=== PATIENT | female | born 1990 | race Caucasian/White ===

== ENCOUNTER 2019-08-16 10:51 | Outpatient (CLI) | payer OTHER ==
[~2019-08-16] VITALS: Ht 170.2 cm; Wt 119.4 kg
--- NOTE | 2019-08-16 10:50 | NUR ---
GILL MIN presented to unit via from home, accompanied by Aj , with c/o [employer]. GILL MIN weighed, gowned, voided, and to bed. EFHM and TOCO applied, VS taken. GILL MIN oriented to bed controls, call light, TV, heat, and A/C controls.
[2019-08-16 10:55] VITALS: BP 128/78
[2019-08-16] MEDS ORDERED: ASPI-999 PO (11:26)
[2019-08-16] MEDS ORDERED: FERR-84 PO (11:26)
[2019-08-16] MEDS ORDERED: PREN1TAB19 PO (11:26)
[2019-08-16 11:57] VITALS: BP 128/78
--- NOTE | 2019-08-16 12:15 | NUR ---
Wrong time noted on some of the interventions - listed 1010, however time was 1110. Pt stated was 1 cm from previous exam several weeks ago. Cervix unchanged. 1215 OB outpt instructions given to pt with verbalized understanding. Ambulatory to exit.
--- NOTE | 2019-08-19 08:23 | Physician Query-Final Dx ---
TATI PAGAN 08/19/19 0823: Clinic Account Progress/Dx Physician Query: Please give diagnosis Please include # weeks gestation Date of Service Aug 16, 2019 at 10:51 SHAW AGUAYO DO 08/19/19 0951: Clinic Account Progress/Dx DIAGNOSIS: Diagnosis 35 week IUP Pelvic pressure TATI PAGAN Aug 19, 2019 08:23 POSSHAW AGUAYO DO Aug 19, 2019 09:51 POS
[2019-09-04] MEDS ORDERED: DOCU100C37 PO (11:23)
[2019-09-04] MEDS ORDERED: DIBU30OI TOP (11:23)
[2019-09-04] MEDS ORDERED: ACHD5005 PO (11:23)
[2019-09-04] MEDS ORDERED: FERR325T18 PO (11:23)
[2019-09-04] MEDS ORDERED: IBUP-844 PO (11:23)
[2019-09-04] MEDS ORDERED: BENZ78AE2 TP (11:23)
== END 2019-08-16 12:15 ==
LOC: WSo 10:51 → LDRP 10:52 → WSo 12:15
PROVIDERS: ATTEND Obstetrics & Gynecology
DX: O26.893 Other specified pregnancy related conditions, third trimester (principal); R10.2 Pelvic and perineal pain; Z3A.35 35 weeks gestation of pregnancy
CPT/HCPCS: 99213

== ENCOUNTER 2019-09-03 09:12 | Inpatient (IN) | payer OTHER ==
[~2019-09-03] VITALS: Ht 170.2 cm; Wt 121.7 kg
[2019-09-03] VITALS (50 sets, daily range): BP systolic 123–157; BP diastolic 58–96
[~2019-09-03 09:12] MED LIST: ASPI-999 PO; FERR-84 PO; PREN1TAB19 PO
[2019-09-03] MEDS ORDERED: OXYTOCIN/NORMAL SALINE 500 ML IV SCH ×2 (09:31→19:49)
--- NOTE | 2019-09-03 09:53 | History & Physical-OB ---
OB - Chief Complaint & HPI Date/Time Date of Admission: Date of Admission: 09/03/2019 Date seen by a Provider: Sep 03, 2019 Time Seen by a Provider: 09:45 Chief Complaint/History OB-Reason for Admission/Chief: Rupture of Membranes Hx : 3 Hx Para: 1 Expected Date of Delivery: Sep 12, 2019 Gestational Age in Weeks: 38 Gestational Age in Days: 5 Admission Nurse Assessment Rev: Yes History of Labs O pos Antibody neg RI RPR NR HBsAg NR HCsAg NR HIV NR GC neg GBS neg Allergies and Home Medications Allergies Coded Allergies: No Known Drug Allergies (Unverified , 09/03/19) Home Medications Aspirin 81 Mg Tab.chew, 81 MG PO HS, (Reported) Ferrous Sulfate 325 Mg Tablet, 325 MG PO HS, (Reported) Vit/Iron Fumarate/FA 1 Each Tablet, 1 EACH PO DAILY, (Reported) Patient Home Medication List Home Medication List Reviewed: Yes OB - History Hx of Present Care: Yes Ultrasounds: Normal mid trimester US Obstetrical Complications: None Medical Complications: None Patient Past Medical History n/a Social History/Family History 2nd Hand Smoke Exposure: No Immunizations Date of Influenza Vaccine: Jul 23, 2019 OB - Admission Exam Physical Exam HEENT: NCAT Heart: Rhythm Normal Lungs: Clear Abdomen: Gravid Extremities: Normal Reflexes: Normal Cervical Dilatation: 5cm Effacement: 75% Station: -3 Membranes: Ruptured Amniotic Fluid: Clear Heart Rate: 130's Accelerations: Accelerations Present Decelerations: No Decelerations Short Term Variability: Present Assisted Variability: Average (6-25) Contractions on Admission: 6-10 Minutes Apart Intensity: Mild OB - Assessment/Plan/Diagnosis Assessment Assessment: active labor Admission Dx 28 yo @ 38.5 weeks SROM- last night at 1900 GBS neg Admission Status: Inpatient Order (span 2 midnights) Reason for Inpatient Admission: Active labor at term Plan Plan: Other (Pitocin augmentation due to inadequate contraction pattern.) SHAW AGUAYO DO Sep 03, 2019 9:53 am
[2019-09-03] MEDS ORDERED: LACTATED RINGERS 1,000 ML IV ONE ×2 (10:02→11:13)
[2019-09-03 10:09] LABS: BASOPHILS % (AUTO) 0 % (0-10); EOSINOPHILS # (AUTO) 0.1 10^3/uL (0.0-0.3); EOSINOPHILS % (AUTO) 1 % (0-10); HEMATOCRIT 35 % (35-52); HEMOGLOBIN 11.7 G/DL (11.5-16.0); LYMPHOCYTES # (AUTO) 1.6 X 10^3 (1.0-4.0); LYMPHOCYTES % (AUTO) 16 % (12-44); MEAN CORPUSCULAR HEMOGLOBIN 28 PG (25-34); MEAN CORPUSCULAR HGB CONC 33 G/DL (32-36); MEAN CORPUSCULAR VOLUME 83 FL (80-99); MEAN PLATELET VOLUME 10.8 FL (7.4-10.4); MONOCYTES # (AUTO) 0.7 X 10^3 (0.0-1.0); MONOCYTES % (AUTO) 7 % (0-12); NEUTROPHILS # (AUTO) 7.5 X 10^3 (1.8-7.8); NEUTROPHILS % (AUTO) 76 % (42-75); PLATELET COUNT 223 10^3/uL (130-400); RED CELL DISTRIBUTION WIDTH 14.8 % (10.0-14.5); WHITE BLOOD COUNT 9.9 10^3/uL (4.3-11.0)
[2019-09-03 10:10] LABS: BILIRUBIN,URINE NEGATIVE (NEGATIVE); CLARITY,URINE CLEAR; COLOR,URINE YELLOW; GLUCOSE, URINE (UA) NEGATIVE (NEGATIVE); KETONES,URINE NEGATIVE (NEGATIVE); LEUKOCYTE ESTERASE ,URINE NEGATIVE (NEGATIVE); NITRITE,URINE NEGATIVE (NEGATIVE); PH,URINE 6.5 (5-9); PROTEIN,URINE NEGATIVE (NEGATIVE)
[2019-09-03] MEDS: D5 LR IV SOLUTION 1,000 ML IV SCH ×2 (10:11→17:30)
[2019-09-03 10:27] LABS: BACTERIA,URINE NEGATIVE /HPF
[2019-09-03] MEDS ORDERED: SUFENTA 0.6MCG/ML BUPIVA 0.125 100 ML ONE (10:32)
[2019-09-03] MEDS ORDERED: fentaNYL INJECTION 100 MCG/2 ML AMP ONE (10:42)
[2019-09-03] MEDS ORDERED: BUPIVACAINE 0.25% 30 ML (SENSORCAINE) VIAL ONE (10:42)
[2019-09-03] MEDS: EPIDURAL (SUFENTA 0.6MCG/ML BUPIVA 0.125%) 100 ML BAG EPI SCH ×2 (11:05→17:30)
[2019-09-03] MEDS ORDERED: CATHETER FLUSH 10 ML SYR IV PRN (11:15)
[2019-09-03] MEDS ORDERED: NALOXONE 0.4 MG/ML 1 ML (NARCAN) VIAL IV PRN (11:15)
[2019-09-03] MEDS ORDERED: ONDANSETRON 4 MG/2 ML (SDV) Z0FRAN IV PRN (11:15)
[2019-09-03] MEDS ORDERED: diphenhydrAMINE 50 MG/ML INJ (BENADRYL) IV PRN (11:15)
[2019-09-03] MEDS ORDERED: CATHETER FLUSH 10 ML SYR IV SCH ×2 (14:00→22:00)
[2019-09-03] MEDS ORDERED: LIDOCAINE/EPI 2% 1:200,00 (XYLOCAINE) 10 ML VIAL ONE (19:10)
--- NOTE | 2019-09-03 19:49 | OB Labor & Delivery Record ---
L&D History Date of Service Date of Service: Sep 03, 2019 History Expected Date of Delivery: Sep 12, 2019 Gestational Age in Weeks: 38 Hx : 3 Hx Para: 1 Complications Events: Routine care Operative Indications (Cesarea: N/A-Vaginal Delivery Intrapartal Events: None L&D Stage1 Stage One Onset of Labor - Date: Sep 03, 2019 Monitors and Tracing Monitor Mode: Internal Heart Rate: 145 Monitor Accelerations: Uniform Station: -2 Retirement Variability: Average (6-10) Short Term Variability: Present Presentation: Vertex Vital Signs VS - Last 72 Hours, by Label 09/03/19 09/03/19 09/03/19 09/03/19 09:14 09:14 10:00 10:30 Temp 36.9 36.9 Pulse 105 105 96 86 Resp 20 20 20 20 B/P (MAP) 129/90 (103) 131/83 (99) 125/85 (98) Pulse Ox 99 99 O2 Delivery Room Air Room Air Room Air Room Air 09/03/19 09/03/19 09/03/19 09/03/19 10:45 10:54 10:57 10:58 Pulse 88 87 88 82 Resp 20 20 20 20 B/P (MAP) 142/78 (99) 139/87 (104) 133/84 (100) 138/89 (105) Pulse Ox 100 99 98 98 O2 Delivery Room Air Room Air Room Air Room Air 09/03/19 09/03/19 09/03/19 09/03/19 10:59 11:00 11:05 11:15 Temp 37.0 Pulse 77 105 97 86 Resp 20 20 20 20 B/P (MAP) 140/88 (105) 138/89 (105) 141/83 (102) 138/63 (88) Pulse Ox 99 98 98 99 O2 Delivery Room Air Room Air Room Air Room Air 09/03/19 09/03/19 09/03/19 09/03/19 11:30 11:45 12:00 12:15 Temp 36.8 Pulse 82 72 75 77 Resp 20 20 20 20 B/P (MAP) 138/85 (102) 132/83 (99) 128/81 (97) 123/78 (93) Pulse Ox 99 97 98 99 O2 Delivery Room Air Room Air Room Air Room Air 1209/03/19 09/03/19 09/03/19 12:30 12:45 13:00 13:15 Pulse 70 66 64 79 Resp 20 20 20 20 B/P (MAP) 133/86 (102) 125/82 (96) 129/82 (98) 123/83 (96) Pulse Ox 98 98 99 99 O2 Delivery Room Air Room Air Room Air Room Air 09/03/19 09/03/19 09/03/19 09/03/19 13:30 13:45 14:00 14:15 Pulse 78 90 86 92 Resp 20 20 20 20 B/P (MAP) 124/86 (99) 128/80 (96) 125/78 (94) 125/74 (91) Pulse Ox 98 98 98 98 O2 Delivery Room Air Room Air Room Air Room Air 09/03/19 09/03/19 09/03/19 09/03/19 14:30 14:45 15:00 15:15 Temp 36.9 Pulse 86 91 101 96 Resp 20 20 20 20 B/P (MAP) 129/84 (99) 137/75 (95) 126/81 (96) 132/88 (103) Pulse Ox 98 98 98 98 O2 Delivery Room Air Room Air Room Air Room Air 09/03/19 09/03/19 09/03/19 09/03/19 15:30 15:45 16:00 16:15 Temp 36.9 Pulse 93 109 87 96 Resp 20 20 20 20 B/P (MAP) 136/91 (106) 130/85 (100) 130/79 (96) 133/89 (104) Pulse Ox 98 98 97 97 O2 Delivery Room Air Room Air Room Air Room Air 09/03/19 09/03/19 09/03/19 09/03/19 16:30 16:45 17:00 17:15 Pulse 81 77 120 65 Resp 20 20 20 20 B/P (MAP) 127/58 (81) 133/71 (91) 128/80 (96) 132/83 (99) Pulse Ox 96 99 98 98 O2 Delivery Room Air Room Air Room Air Room Air 09/03/19 09/03/19 09/03/19 09/03/19 17:30 17:45 18:00 18:15 Temp 37.3 Pulse 89 86 79 85 Resp 20 20 20 20 B/P (MAP) 124/78 (93) 128/72 (90) 140/89 (106) 138/85 (102) Pulse Ox 98 98 96 95 O2 Delivery Room Air Room Air Room Air Room Air 09/03/19 18:30 Pulse 96 Resp 20 B/P (MAP) 134/86 (102) Pulse Ox 96 O2 Delivery Room Air Rupture of Membranes Spontaneous Ruture of Membrane: Yes Amniotic Membrane Rupture Time: 1900 Amniotic Membrane Fluid Desc.: Clear Vaginal Bleeding Description: Normal Show Induction/Anesthesia Epidural Cath Placement - Time: 1058 Progress/Notes Patient admitted after approx 12 hrs of SROM, Pitocin started at admission, and epidural received shortly after. She progressed to complete and + 2 station at a max dose of 14 mu/min L&D Stage2 Stage Two Stage II Date: Sep 03, 2019 Monitors and Tracing Monitor Mode: External Heart Rate: 145 Monitor Accelerations: Uniform Monitor Decelerations: Variable Archives Technician Variability: Average (6-10) Position: Right Occiput Anterior Presentation: Vertex Signs of Distress by FHT Signs of Distress nuchal cord reduced x 1 Cord Descript/Complications Cord Vessel Description: 3 Vessels Delivery Type Infant Delivery Method: Spontaneous Vaginal Anterior Shoulder: Right Episiotomy/Perineal Laceration Laceraction(s)/Extensions: Yes Episiotomy Description: Midline Degree (describe repair) midline episiotomy and right periurethral repaired using 3-0 rapide in usual fashion. Condition of Delivery 1 minute Comment: 8 5 minute Comment: 9 Notes Live female infant weight pending Condition of Condition of : Living Exam: No Observed Abnormalities Resuscitation Resuscitation: N/A - Spontaneous Resp L&D Stage3 Stage Three Stage III Date: Sep 03, 2019 Pictocin Pitocin Administration mu/min: 14 Pitocin ml/hr: 14 Pitocin Administration Comment: 30 mu Wide open at delivery of placenta Placenta Delivery Placenta Delivery: Spontaneous Delivery Summary Summary Estimated blood loss (mL): 350 350 Attending at delivery: Shaw Aguayo DO Condition of Delivery Examined: Cervix Examined, Uterus Explored Post Hemorrhage: No Condition of Mother stable Condition of (s) stable SHAW AGUAYO DO Sep 03, 2019 7:49 pm
[2019-09-03] MEDS ORDERED: TETANUS,DIPTH,PERTUSS P/F (BOOSTRIX) 0.5 ML VIAL IM ONE (20:00)
[2019-09-03] MEDS ORDERED: HYDROcodone/APAP 5 MG/325 MG (LORTAB) TAB PO PRN (20:00)
[2019-09-03] MEDS ORDERED: MEASLES,MUMPS,RUBELLA 1 EA INJ SQ ONE (20:00)
[2019-09-03] MEDS ORDERED: WITCH HAZEL(TUCKS) 40 EA JAR TOP PRN (20:00)
[2019-09-03] MEDS ORDERED: DIBUCAINE (NUPERCAINAL) 1% OINT 30 GM TOP PRN (20:00)
[2019-09-03] MEDS ORDERED: BENZOCAINE/MENTHOL (DERMOPLAST) 56 ML CAN TP PRN (20:00)
[2019-09-03] MEDS: IBUPROFEN 600 MG (MOTRIN) TAB PO SCH (21:25)
[2019-09-03] MEDS: DOCUSATE SODIUM 100 MG (COLACE) CAP PO SCH (21:26)
--- NOTE | 2019-09-03 22:01 | NUR ---
pt at this time, will attempt to transfer to PP room after feeding.
--- NOTE | 2019-09-03 23:10 | NUR ---
Pt up to standing with standby assist to wheelchair to bathroom. Void noted, discussed and demonstrated pericare with pt. Clean gown, vpad, ice pack and mesh panties in place. Pt to wheelchair and transferred to room 309. pt to bed without difficulty. Oriented to room, call light within reach, info papers explained. Enc pt to call for assistance before getting up to void next time.
[2019-09-04 03:38] VITALS: BP 101/55
[2019-09-04] MEDS: IBUPROFEN 600 MG (MOTRIN) TAB PO SCH ×3 (03:38→16:31)
[2019-09-04 05:47] LABS: BASOPHILS % (AUTO) 0 % (0-10); EOSINOPHILS # (AUTO) 0.1 10^3/uL (0.0-0.3); EOSINOPHILS % (AUTO) 1 % (0-10); HEMATOCRIT 32 % (35-52); HEMOGLOBIN 10.6 G/DL (11.5-16.0); LYMPHOCYTES # (AUTO) 1.9 X 10^3 (1.0-4.0); LYMPHOCYTES % (AUTO) 17 % (12-44); MEAN CORPUSCULAR HEMOGLOBIN 27 PG (25-34); MEAN CORPUSCULAR HGB CONC 33 G/DL (32-36); MEAN CORPUSCULAR VOLUME 83 FL (80-99); MEAN PLATELET VOLUME 10.4 FL (7.4-10.4); MONOCYTES % (AUTO) 9 % (0-12); NEUTROPHILS % (AUTO) 74 % (42-75); PLATELET COUNT 188 10^3/uL (130-400); RED CELL DISTRIBUTION WIDTH 14.8 % (10.0-14.5); WHITE BLOOD COUNT 10.9 10^3/uL (4.3-11.0)
--- NOTE | 2019-09-04 07:30 | NUR ---
Appears to sleep, with infant in crib at bedside. Will not disturb at this time.
[2019-09-04] MEDS ORDERED: FERROUS SULF 325 MG (IRON) TAB PO SCH (08:00)
[2019-09-04] MEDS: DOCUSATE SODIUM 100 MG (COLACE) CAP PO SCH (08:34)
[2019-09-04 08:45] VITALS: BP 123/81
--- NOTE | 2019-09-04 08:45 | NUR ---
Awake with infant in arms. VS checked. Meds given. Patient states pain a 6 on pain scale, but does not want pain meds at this time. Will wait for scheduled motrin. Voiding without difficulty, but burning with urination. Doing pericare with voids. 1+ pitting edema noted to lower legs, no pain. Will view perineum after shower. Shower readied. FF u/2
--- NOTE | 2019-09-04 11:21 | Postpartum Progress Note ---
Note Note Day # 1 Subjective: Patient is without complaints. Ambulating, voiding. Tolerating a regular diet without nausea or vomiting. Normal lochia. Pain is well controlled with oral pain medications. Objective: Physical Exam: General - Alert and oriented, no apparent distress Abdomen - Soft, appropriately tender to palpation, non-distended, fundus firm at umbilicus Extremities - no edema, negative Massimo's bilaterally Assessment: PPD 1 NVD Acute blood loss anemia Plan: Routine care. Encourage breast feeding. Encourage ambulation. Ferrous sulfate supplementation. Plan for discharge tomorrow Vitals - Labs Vital Signs - I&O Vital Signs Date Time Temp Pulse Resp B/P (MAP) Pulse Ox O2 Delivery O2 Flow Rate FiO2 09/04/19 08:45 98 09/04/19 08:45 36.9 95 18 123/81 (95) Room Air 09/04/19 03:38 37.0 88 18 101/55 (70) Room Air 09/03/19 23:48 36.8 71 18 135/66 (89) Room Air 09/03/19 21:23 95 18 132/79 (96) Room Air 09/03/19 20:50 80 18 134/76 (95) Room Air 09/03/19 20:25 37.1 78 18 141/68 (92) Room Air 09/03/19 20:15 85 18 141/61 (87) Room Air 09/03/19 20:00 96 18 157/89 (111) Room Air 09/03/19 19:50 37.0 09/03/19 19:41 36.9 93 18 149/68 (95) Room Air 09/03/19 19:37 37.2 09/03/19 19:26 37.3 117 20 151/96 (114) Room Air 09/03/19 19:15 37.1 122 20 99 Room Air 09/03/19 19:00 98 20 133/89 (104) 100 Room Air 09/03/19 18:45 36.9 96 20 134/87 (103) 96 Room Air 09/03/19 18:30 96 20 134/86 (102) 96 Room Air 09/03/19 18:15 85 20 138/85 (102) 95 Room Air 09/03/19 18:00 79 20 140/89 (106) 96 Room Air 09/03/19 17:45 37.3 86 20 128/72 (90) 98 Room Air 09/03/19 17:30 89 20 124/78 (93) 98 Room Air 09/03/19 17:15 65 20 132/83 (99) 98 Room Air 09/03/19 17:00 120 20 128/80 (96) 98 Room Air 09/03/19 16:45 77 20 133/71 (91) 99 Room Air 09/03/19 16:30 81 20 127/58 (81) 96 Room Air 09/03/19 16:15 36.9 96 20 133/89 (104) 97 Room Air 09/03/19 16:00 87 20 130/79 (96) 97 Room Air 09/03/19 15:45 109 20 130/85 (100) 98 Room Air 09/03/19 15:30 93 20 136/91 (106) 98 Room Air 09/03/19 15:15 96 20 132/88 (103) 98 Room Air 09/03/19 15:00 101 20 126/81 (96) 98 Room Air 09/03/19 14:45 36.9 91 20 137/75 (95) 98 Room Air 09/03/19 14:30 86 20 129/84 (99) 98 Room Air 09/03/19 14:15 92 20 125/74 (91) 98 Room Air 09/03/19 14:00 86 20 125/78 (94) 98 Room Air 09/03/19 13:45 90 20 128/80 (96) 98 Room Air 09/03/19 13:30 78 20 124/86 (99) 98 Room Air 09/03/19 13:15 79 20 123/83 (96) 99 Room Air 09/03/19 13:00 64 20 129/82 (98) 99 Room Air 09/03/19 12:45 66 20 125/82 (96) 98 Room Air 09/03/19 12:30 70 20 133/86 (102) 98 Room Air 09/03/19 12:15 36.8 77 20 123/78 (93) 99 Room Air 09/03/19 12:00 75 20 128/81 (97) 98 Room Air 09/03/19 11:45 72 20 132/83 (99) 97 Room Air 09/03/19 11:30 82 20 138/85 (102) 99 Room Air I & O 09/04/19 07:00 Intake Total 2250 ml Balance 2250 ml Labs Laboratory Tests 09/04/19 04:55: White Blood Count 10.9, Red Blood Count 3.90L, Hemoglobin 10.6L, Hematocrit 32L, Mean Corpuscular Volume 83, Mean Corpuscular Hemoglobin 27, Mean Corpuscular Hemoglobin Concent 33, Red Cell Distribution Width 14.8H, Platelet Count 188, Mean Platelet Volume 10.4, Neutrophils (%) (Auto) 74, Lymphocytes (%) (Auto) 17, Monocytes (%) (Auto) 9, Eosinophils (%) (Auto) 1, Basophils (%) (Auto) 0, Neutrophils # (Auto) 8.0H, Lymphocytes # (Auto) 1.9, Monocytes # (Auto) 1.0, Eosinophils # (Auto) 0.1, Basophils # (Auto) 0.0 SHAW AGUAYO DO Sep 04, 2019 11:21
[2019-09-04] MEDS ORDERED: IBUP-844 PO (11:23)
[2019-09-04] MEDS ORDERED: ACHD5005 PO (11:23)
[2019-09-04] MEDS ORDERED: FERR325T18 PO (11:23)
[2019-09-04] MEDS ORDERED: DOCU100C37 PO (11:23)
[2019-09-04] MEDS ORDERED: DIBU30OI TOP (11:23)
[2019-09-04] MEDS ORDERED: BENZ78AE2 TP (11:23)
--- NOTE | 2019-09-04 11:24 | Discharge Inst-Women's Service ---
Discharge Inst-Women's Serv Depart Medication/Instructions New, Converted or Re-Newed RX: RX on Chart Final Diagnosis PPD 2 NVD Problems Reviewed?: Yes Consults/Follow Up Additional Follow Up: Yes Orders/Referrals Dr. Aguayo in 6 weeks Activity Activity: Activity as Tolerated Driving Instructions: No Driving for 1 Week NO SMOKING: NO SMOKING Nothing Inside Vagina: No Douching, No [place], No Tampons Diet Discharge Diet: No Restrictions Symptoms to Report to : Bleeding Excessive, Pain Increased, Fever Over 101 Degrees F, Vaginal Bleeding Increase, Questions/Concerns For Any Problems or Questions: Contact Your Physician SHAW AGUAYO DO Sep 04, 2019 11:23
--- NOTE | 2019-09-04 12:00 | NUR ---
Patient up to shower. Perineum examined. Unremarkable. No bruising or swelling noted.
[2019-09-04 12:30] VITALS: BP 116/62
[2019-09-04 20:02] VITALS: BP 133/83
--- NOTE | 2019-09-04 20:05 | NUR ---
Pt has desire to discharge if is allowed to discharge. Pt advised it will take time to run labs and it may be late and pt and family is aware. will contact Dr if labs are ok.
--- NOTE | 2019-09-04 20:53 | Anesthesia-Regional Post-Op ---
Regional Patient Condition Mental Status: Alert, Oriented x3 Circulation: Same as Pre-Op Headache: Absent Sensation: Full Recovery Motor Block: Absent Post Op Complications Complications None Follow Up Care/Instructions Patient Instructions None needed. Anesthesia/Patient Condition Patient is doing well, no complaints, stable vital signs, no apparent adverse anesthesia problems. No complications reported per nursing. ARLETTE LOW CRNA Sep 04, 2019 20:53
--- NOTE | 2019-09-04 21:30 | NUR ---
Pt discharged to home
== END 2019-09-04 21:30 | disposition home or self-care (01) | DRG 806 ==
LOC: WSo 09:12 → LDRP 09:12 → WSo 09:29 → LDRP 09:29
PROVIDERS: ADMIT Obstetrics & Gynecology; ATTEND Obstetrics & Gynecology
PROC: 10E0XZZ Delivery of Products of Conception, External Approach (ICD-10-PCS; principal; 2019-09-03)
PROC: 0W8NXZZ Division of Female Perineum, External Approach (ICD-10-PCS; 2019-09-03)
PROC: 0UQMXZZ Repair Vulva, External Approach (ICD-10-PCS; 2019-09-03)
DX: O42.02 Full-term premature rupture of membranes, onset of labor within 24 hours of rupture (principal); O90.81 Anemia of the puerperium; D62 Acute posthemorrhagic anemia; O69.81X0 Labor and delivery complicated by cord around neck, without compression, not applicable or unspecified; O71.82 Other specified trauma to perineum and vulva; Z3A.38 38 weeks gestation of pregnancy; Z37.0 Single live birth
CPT/HCPCS: 36415; 81000; 85025; 86850; 86900; 86901; 99212